=== PATIENT | female | born 1950 | race Caucasian/White ===

== ENCOUNTER 2019-11-30 08:04 | Outpatient (CLI) | payer OTHER, SELFPAY ==
[2019-11-30 08:25] LABS: Basophils Absolute Auto 0.02 K/mm3 (0.00-0.10); Basophils Percent Auto 0.5 % (0.0-1.0); Eosinophils Absolute Auto 0.25 K/mm3 (0.02-0.50); Hematocrit 41.1 % (35.0-42.0); Hemoglobin 13.8 g/dL (11.7-13.8); Immature Granulocyte Absolute 0.02 K/mm3 (0.00-0.00); Immature Granulocyte Percent A 0.5 % (0.0-0.0); Lymphocytes Absolute Auto 0.76 K/mm3 (1.10-4.50); Lymphocytes Percent Auto 18.2 % (18.0-42.0); Mean Corpuscular HGB Conc 33.6 g/dL (32.0-36.0); Mean Corpuscular Hemoglobin 32.2 pg (27.0-31.0); Mean Corpuscular Volume 95.8 fL (78.0-102.0); Mean Platelet Volume 9.8 fl (9.2-11.8); Monocytes Absolute Auto 0.42 K/mm3 (0.10-0.90); Monocytes Percent Auto 10.1 % (2.0-11.0); Neutrophils Absolute Auto 2.7 K/mm3 (1.7-7.2); Neutrophils Percent Auto 64.7 % (50.0-70.0); Platelet Count Result 188 K/mm3 (150-420); Red Blood Count 4.29 M/mm3 (4.20-5.40); Red Cell Distribution Width 12.7 % (11.6-14.4); White Blood Count 4.2 K/mm3 (4.8-10.8)
[2019-11-30 09:25] LABS: Alanine Aminotransferase 18 U/L (14-59); Albumin Level 3.5 g/dL (3.4-5.0); Alkaline Phosphatase 67 U/L (46-116); Anion Gap 9.3 mmol/L (7-16); Aspartate Amino Transferase 16 U/L (15-37); Bilirubin,Total 0.3 mg/dL (0.00-1.00); Blood Urea Nitrogen 13 mg/dL (7-18); Calcium 8.7 mg/dL (8.5-10.1); Carbon Dioxide 31 mmol/L (21-32); Chloride 106 mmol/L (98-108); Cholesterol 180 mg/dL (0-200); Estimated Glomerular Filt Rate > 60; Glucose 87 mg/dL (70-99); HDL Direct 57 mg/dL (40-60); LDL Cholesterol Calculated 98 mg/dL (<130); Osmolality Calculated 293 mOsm/kg (285-295); Potassium 4.3 mmol/L (3.5-5.1); Sodium 142 mmol/L (136-145); Total Protein 6.6 g/dL (6.4-8.2); Triglycerides 124 mg/dL (0-150)
== END 2019-11-30 08:05 | disposition home or self-care (01) ==
PROVIDERS: PCP Nurse Practitioner Family; Visit Provider Nurse Practitioner Family
DX: E78.5 Hyperlipidemia, unspecified (principal); I10 Essential (primary) hypertension
CPT/HCPCS: 36415; 80053; 80061; 85025

== ENCOUNTER 2021-09-24 09:33 | Outpatient (CLI) | payer OTHER, SELFPAY ==
[2021-09-24 09:42] LABS: Basophils Absolute Auto 0.02 K/mm3 (0.00-0.10); Basophils Percent Auto 0.4 % (0.0-1.0); Eosinophils Absolute Auto 0.14 K/mm3 (0.02-0.50); Eosinophils Percent Auto 2.7 % (1.0-6.0); Hematocrit 45.6 % (35.0-42.0); Hemoglobin 15.1 g/dL (11.7-13.8); Immature Granulocyte Absolute 0.02 K/mm3 (0.00-0.00); Immature Granulocyte Percent A 0.4 % (0.0-0.0); Lymphocytes Absolute Auto 1.12 K/mm3 (1.10-4.50); Lymphocytes Percent Auto 21.5 % (18.0-42.0); Mean Corpuscular HGB Conc 33.1 g/dL (32.0-36.0); Mean Corpuscular Hemoglobin 32.2 pg (27.0-31.0); Mean Corpuscular Volume 97.2 fL (78.0-102.0); Mean Platelet Volume 10.1 fl (9.2-11.8); Monocytes Absolute Auto 0.45 K/mm3 (0.10-0.90); Monocytes Percent Auto 8.6 % (2.0-11.0); Neutrophils Absolute Auto 3.5 K/mm3 (1.7-7.2); Neutrophils Percent Auto 66.4 % (50.0-70.0); Platelet Count Result 178 K/mm3 (150-420); Red Blood Count 4.69 M/mm3 (4.20-5.40); Red Cell Distribution Width 13.1 % (11.6-14.4); White Blood Count 5.2 K/mm3 (4.8-10.8)
[2021-09-24 11:00] LABS: Alanine Aminotransferase 23 U/L (14-59); Alkaline Phosphatase 105 U/L (46-116); Anion Gap 8 mmol/L (8-16); Aspartate Amino Transferase 15 U/L (15-37); Bilirubin,Total 0.5 mg/dL (0.00-1.00); Blood Urea Nitrogen 10 mg/dL (7-18); Carbon Dioxide 30 mmol/L (21-32); Chloride 104 mmol/L (98-108); Cholesterol 158 mg/dL (0-200); Estimated Glomerular Filt Rate > 60; Glucose 93 mg/dL (70-99); HDL Direct 52 mg/dL (40-60); LDL Cholesterol Calculated 85 mg/dL (<130); Osmolality Calculated 293 mOsm/kg (285-295); Potassium 4.1 mmol/L (3.5-5.1); Sodium 142 mmol/L (136-145); Total Protein 6.9 g/dL (6.4-8.2); Triglycerides 106 mg/dL (0-150)
== END 2021-09-24 09:34 | disposition home or self-care (01) ==
LOC: CHSLAB 09:35
PROVIDERS: PCP Nurse Practitioner Family; Visit Provider Nurse Practitioner Family
DX: E78.5 Hyperlipidemia, unspecified (principal); I10 Essential (primary) hypertension
CPT/HCPCS: 36415; 80053; 80061; 85025

== ENCOUNTER 2022-12-11 10:30 | Emergency (ER) | payer OTHER, SELFPAY ==
[2022-12-11] VITALS (34 sets, daily range): BP systolic 112–147; BP diastolic 43–73; PULSE 59–75; RESP 12–24; TEMP 36.6; O2SAT 88–100
--- NOTE | ~2022-12-11 | CT_ITS ---
EXAMINATION: CT abdomen pelvis w con DATE: 12/11/2022 11:52 INDICATION: Epigastric pain radiating to back. History of endometrial cancer. TECHNIQUE: Computed tomography (CT) of the abdomen and pelvis was performed with 100 CC Omnipaque 350 intravenous contrast. Automated exposure control and iterative reconstruction technique were employe d. Exam dose: 1063.83 mGy-cm total exam DLP. COMPARISON: None. FINDINGS: The lung bases are clear. Normal heart size. No pericardial or pleural effusion. Small sliding hiatal hernia. The gallbladder is contracted with thickening of the wall and pericholecystic fluid or fat stranding suggesting acute cholecystitis. There is mild intrahepatic bile duct dilatation. No pancreatic mass lesion or pancreatic calcificatio n or pancreatic duct dilatation is noted. Normal splenic size. Normal morphology of the adrenal glands. No renal mass lesion is evident. There is a small nonobstructing lower pole right renal calculus. No ureteral calculus or hydroureteronephrosis is noted on either side. Normal appendix. Diverticulosis of the colon; no CT evidence of diverticulitis. No bowel obstruction, bowel wall thickening, pneumatosis or intraperitoneal free air. Status post hysterectomy. There is mild atherosclerotic calcification but normal caliber of the abdominal aorta. There is ather osclerotic calcification at the origins of the celiac and superior mesenteric arteries and to a great er extent the renal arteries. No intraperitoneal or retroperitoneal or pelvic mass lesion or adenopathy or ascites is noted. Degenerative changes of the thoracic spine including diffuse idiopathic skeletal hyperostosis. Multil evel degenerative disc disease of the lumbar spine, especially at L1-2 and L2-3. No suspicious osteolytic or osteoblastic lesions are noted. IMPRESSION: Acute cholecystitis is suggested Mild intrahepatic bile duct dilatation Small sliding hiatal hernia Normal appendix Diverticulosis of the colon; no CT evidence of diverticulitis Small nonobstructing lower pole right renal calculus Status post hysterectomy Reviewed, dictated and finalized at [facility]. Reviewed, dictated and finalized at location [facility].
--- NOTE | ~2022-12-11 | XR_ITS ---
XR abdomen NG/feed tube insert INDICATION: Evaluate NG tube position. TECHNIQUE: Limited KUB perform for evaluating NG tube . COMPARISON: No prior studies for comparison. FINDINGS: NG tube tip in the stomach. Visualized bowel gas pattern is unremarkable. IMPRESSION: 1: NG tube tip in the stomach. Reviewed, dictated and finalized at location [facility].
--- NOTE | ~2022-12-11 | XR_ITS ---
XR chest 1V portable DATE: 12/11/2022 11:53 INDICATION: Epigastric pain for 10 days. Former smoker. TECHNIQUE: Portable AP chest on 12/11/2022 at 1137 hours COMPARISON: 12/11/2022 CT abdomen pelvis FINDINGS: Heart size is within normal range. Is aortic arch calcification. Mild hiatal hernia. No pulmonary infiltrate or consolidation, pleural effusion or pulmonary vascular congestion or pneumo thorax. IMPRESSION: No active cardiopulmonary disease Aortic atherosclerosis Small hiatal hernia Reviewed, dictated and finalized at location [facility].
--- NOTE | 2022-12-11 10:51 | ECG_ITS ---
Measurements Intervals [place] Rate: 66 P: 13 OH: 188 QRS: 20 QRSD: 105 T: 43 QT: 428 QTc: 449 Interpretive Statements SINUS RHYTHM INCOMPLETE RIGHT BUNDLE BRANCH BLOCK [90+ ms QRS DURATION, TERMINAL R IN V1/V2, 40+ ms S IN I/aVL/V4/V5/V6] BORDERLINE ECG NO PREVIOUS ECG AVAILABLE FOR COMPARISON Electronically Signed On 12-11-2022 13:23:54 CDT by Ki Yusuf M.D.
--- NOTE | 2022-12-11 10:54 | ED.GENADULT ---
HPI - General Adult General Chief complaint: Abdominal Pain Stated complaint: abdominal pain x 1 week Time Seen by Provider: 12/11/22 10:39 History of Present Illness HPI narrative: This is a 72-year-old female presenting ED with a chief complaint abdominal pain. Patient pain is located in the epigastric area and radiates to her back. He has been going on for 1 week, this worsens to food is described as a burning sensation. Six out 10 intensity and used to come and go but is now constant. Patient has never had pain like this before the last 2 weeks. She is not taking anything for pain control. She has never been diagnosed with gastritis or peptic ulcer disease before. She has had decreased oral intake. She denies fever chills nausea vomiting diarrhea, chest pain difficulty breathing or urinary symptoms. Related Data Allergies Allergy/AdvReac Type Severity Reaction Status Date / Time No Known Allergies Allergy Verified 12/11/22 13:06 [facility] Past Medical History Medical History (Updated 12/11/22 @ 12:41 by Ricardo Willis MD) FIGO stage II endometrial cancer HTN (hypertension) Hyperlipidemia Overweight Social History Social History Smoking status: Former smoker Alcohol intake: never Exam Narrative: APPEARANCE: Patient appears uncomfortable Head: atraumatic. EYES: EOMI, NOSE: Atraumatic NECK: Trachea midline RESPIRATORY: No increased rate of breathing , clear to auscultation CARDIOVASCULAR: RRR, ABDOMINAL: tenderness to palpation in the epigastric area, rest the abdomen soft nontender no guarding or rebound. MUSCULOSKELETAl: No obvious deformities NEURO: Alert. Moving 4/4 extremities SKIN:: Warm, dry. Normal color PSYCHIATRIC: Normal affect Course Vital Signs Vital signs: Vital Signs Temperature 97.9 F 12/11/22 10:30 Pulse Rate 71 12/11/22 10:30 Respiratory Rate 18 12/11/22 10:30 Blood Pressure 147/73 H 12/11/22 10:30 Pulse Oximetry 96 12/11/22 10:30 Oxygen Delivery Room Air 12/11/22 10:30 Temperature 97.9 F 12/11/22 14:15 Pulse Rate 59 L 12/11/22 14:16 Respiratory Rate 16 12/11/22 14:16 Blood Pressure 115/60 12/11/22 14:16 Pulse Oximetry 95 12/11/22 14:16 Oxygen Delivery Room Air 12/11/22 10:30 Medical Decision Making MDM Narrative Medical decision making narrative: -Presentation: 72-year-old female presenting with severe abdominal pain. 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 Hemoglobin 15 3. Metabolic panel unremarkable. Lactic 0.7 Urine showed ketones, blood and trace esterase. Patient has no urinary symptoms. Independent EKG interpretation: Rhythm [sinus], Rate [66], [place] -[normal], [place] -[normal], QRS [narrow], QTC [normal], T waves -[negative for concerning inversions], ST Segments - [Negative for concerning elevations] Final interpretations: [Normal Sinus Rhythm] Chest x-ray had no acute findings. CT Abdomen Pelvis: Suspected gastric antral or proximal duodenal perforated ulcer versus inflammation of cystic duct remnant NG tube will be placed to low intermittent suction. Patient was started on antibiotics. Patient given another 2 L of fluid resuscitation. Dx tests considered but not ordered:None -Procedures: NG-tube insertion -Interventions: 0.5 mg Dilaudid, 20 mg Pepcid, 4 mg Zofran, 30 mg Maalox, Pip/tazo, 3 L normal saline -Shared decision ma
[2022-12-11 11:06] LABS: Basophils Absolute Auto 0.03 K/mm3 (0.00-0.10); Basophils Percent Auto 0.3 % (0.0-1.0); Bilirubin Urine 1+ (Negative); Blood Urine 3+ (Negative); Color Urine Yellow (Yellow); Eosinophils Absolute Auto 0.03 K/mm3 (0.02-0.50); Eosinophils Percent Auto 0.3 % (1.0-6.0); Glucose Urine UA Negative (Negative); Hematocrit 45.6 % (35.0-42.0); Hemoglobin 15.3 g/dL (11.7-13.8); Immature Granulocyte Absolute 0.06 K/mm3 (0.00-0.00); Immature Granulocyte Percent A 0.5 % (0.0-0.0); Ketones Urine 1+ (Negative); Leukocyte Esterase Ur Trace LEU/UL (Negative); Lymphocytes Absolute Auto 2.36 K/mm3 (1.10-4.50); Lymphocytes Percent Auto 20.6 % (18.0-42.0); Mean Corpuscular HGB Conc 33.6 g/dL (32.0-36.0); Mean Corpuscular Hemoglobin 31.1 pg (27.0-31.0); Mean Corpuscular Volume 92.7 fL (78.0-102.0); Mean Platelet Volume 9.7 fl (9.2-11.8); Monocytes Absolute Auto 0.93 K/mm3 (0.10-0.90); Monocytes Percent Auto 8.1 % (2.0-11.0); Neutrophils Absolute Auto 8.1 K/mm3 (1.7-7.2); Neutrophils Percent Auto 70.2 % (50.0-70.0); Nitrate Urine Negative (Negative); Platelet Count Result 295 K/mm3 (150-420); Protein Urine Trace (Negative); Red Blood Count 4.92 M/mm3 (4.20-5.40); Red Cell Distribution Width 12.3 % (11.6-14.4); Specific Grav Ur >= 1.030 (1.010-1.020); White Blood Count 11.5 K/mm3 (4.8-10.8)
[2022-12-11] MEDS: SODIUM CHLORIDE 0.9% IV 1,000 ML 999 ML IV CONT (11:06)
[2022-12-11] MEDS: ONDANSETRON INJ 4 MG/2 ML VIAL IV PUSH (11:06)
[2022-12-11] MEDS: HYDROmorphone HCL INJ (*CRX) 2 MG/ML VIAL 0.5 MG IV PUSH (11:07)
[2022-12-11] MEDS: FAMOTIDINE 20 MG/2 ML VIAL IV PUSH (11:09)
[2022-12-11] MEDS: MAG HYDROX/AL HYDROX/SIMETH 30 ML UDC PO (11:09)
[2022-12-11 11:12] LABS: Add Urine Microscopic? YES; Appearance Urine Slightly Cloudy (Clear); Squamous Epithelial Cell Urine Few /hpf (Few); WBC Urine 0-3 /hpf (0-3)
[2022-12-11 11:13] LABS: Bacteria Urine 1+ /hpf
[2022-12-11 11:17] LABS: Partial Thromboplastin Time 23.5 SEC (23.90-30.70); Prothrombin Time 10.9 Seconds (9.50-12.10)
[2022-12-11 11:19] LABS: Alanine Aminotransferase 26 U/L (14-59); Albumin Level 3.6 g/dL (3.4-5.0); Alkaline Phosphatase 114 U/L (46-116); Anion Gap 8 mmol/L (8-16); Aspartate Amino Transferase 58 U/L (15-37); Bilirubin,Total 0.8 mg/dL (0.00-1.00); Blood Urea Nitrogen 12 mg/dL (7-18); Carbon Dioxide 29 mmol/L (21-32); Chloride 102 mmol/L (98-108); Estimated CRCL calculation 53 ml/min; Estimated Glomerular Filt Rate > 60; Glucose 132 mg/dL (70-99); Lipase 26 U/L (16-77); Osmolality Calculated 289 mOsm/kg (285-295); Sodium 139 mmol/L (136-145); Total Protein 7.5 g/dL (6.4-8.2)
[2022-12-11 11:21] LABS: Troponin I 18.2 ng/L (0.00-60.4)
[2022-12-11 11:24] LABS: Lactic Acid Reflex 0.7 mmol/L (0.4-2.0)
[2022-12-11] MEDS: SODIUM CHLORIDE 0.9% IV 2,000 ML 999 ML IV CONT (12:57)
[2022-12-11] MEDS: LIDOCAINE HCL 1% LOCAL INJ 10 ML VIAL INFILTRATE (13:36)
[2022-12-11 14:14] LABS: Troponin I 18.9 ng/L (0.00-60.4)
== END 2022-12-11 14:40 | disposition short-term general hospital (02) ==
PROVIDERS: Emergency Provider Emergency Medicine; PCP Nurse Practitioner Family
DX: K25.5 Chronic or unspecified gastric ulcer with perforation (principal); I10 Essential (primary) hypertension; E78.5 Hyperlipidemia, unspecified; Z85.42 Personal history of malignant neoplasm of other parts of uterus; Z90.49 Acquired absence of other specified parts of digestive tract
CPT/HCPCS: 36415; 71045; 74177; 80053; 81001; 83605; 83690; 83735; 84484; 85025; 85610; 85730; 93005; 96361; 96365; 96375; 99285; A9270; J1170; J2405; J2543; J7030; Q9967

== ENCOUNTER 2022-12-11 17:32 | Inpatient (IN) | payer OTHER, SELFPAY ==
--- NOTE | ~2022-12-11 | XR_ITS ---
XR UGI water soluble wo kub DATE: 12/12/2022 10:32 INDICATION: Possible perforated ulcer TECHNIQUE: Single contrast examination with water-soluble contrast material COMPARISON: 12/11/2022 CT abdomen pelvis FINDINGS: Water-soluble contrast material was administered through the existing nasogastric tube. Small ulcer crater suggested along the lesser curvature of the distal gastric antrum, with surroundin g mass effect consistent with amount of edema. No extravasated contrast material is noted. No other ulcer or intraluminal mass lesion of the stomach or duodenum is detected. The duodenal bulb and duodenal C-loop appear normal. Normal mucosal pattern of the stomach and duodenum and proximal je junum. IMPRESSION: Probable distal antral lesser curvature ulcer Reviewed, dictated and finalized at [facility]. Reviewed, dictated and finalized at [facility].
--- NOTE | ~2022-12-11 | XR_ITS ---
XR abdomen/kub 1V INDICATION: Evaluate NG tube position. TECHNIQUE: Limited KUB perform for evaluating NG tube . COMPARISON: 12/11/2022 FINDINGS: NG tube tip in the stomach. Visualized bowel gas pattern is unremarkable. IMPRESSION: 1: NG tube tip in the stomach. Reviewed, dictated and finalized at location A.
[2022-12-11 15:39] VITALS: BP 127/59; PULSE 64; RESP 18; TEMP 36.5; O2SAT 99
--- NOTE | 2022-12-11 16:47 | ADMGEN ---
This patient, Nery Jasso, was admitted to [facility] Room 310-01 at 1525. Patient/family oriented to hospital policies and general routines including ID bracelet, bed and alarms, visiting hours, pain management, procedures, bathroom and other care routines, personal items, smoking policy, room service/diet, and visiting hours. Information on how to activate the Rapid Response Team has been discussed. Patient/Family are encouraged to report perceived risks to care and to ask questions if they do not understand what they are told or what they should do.
[2022-12-11 16:48] VITALS: BMI 40.3
--- NOTE | 2022-12-11 17:00 | WPDCN ---
Assessment and Plan Assessment and plan (1) Peptic ulcer: Code(s): K27.9 - Peptic ulcer, site unspecified, unspecified as acute or chronic, without hemorrhage or perforation Status: Acute (2) Abdominal pain: Code(s): R10.9 - Unspecified abdominal pain Status: Acute (3) Dehydration: Code(s): E86.0 - Dehydration Status: Acute (4) Hypertension: Code(s): I10 - Essential (primary) hypertension Status: Acute (5) Gastroesophageal reflux disease: Code(s): K21.9 - Gastro-esophageal reflux disease without esophagitis Status: Acute (6) Hyperlipidemia: Code(s): E78.5 - Hyperlipidemia, unspecified Status: Chronic Plan The patient presented to the emergency department at the outside facility today for evaluation of epigastric pain radiating through to the back. She has not been feeling well for 7 to 10 days as per HPI. Imaging today shows findings of peptic ulcer disease with possible perforation though her abdominal exam is quite benign at this time. NG tube has been inserted for decompression and she will be NPO aside from ice chips overnight. Dr. Nuno recommends starting the patient on pantoprazole and sucralfate. She has also been started on empiric Zosyn for possible underlying infection given the CT read however that seems less likely. She will eventually need an upper GI series. Analgesics and antiemetics are available if needed. She has been started on maintenance fluids as she looks dry on exam and by labs. Her vital signs have been quite stable. Monitor blood pressures closely as she is currently NPO. Thank you for allowing us to participate in this patient's care. Please do not hesitate to contact us with any questions. Time spent on patient encounter: 60 minutes. [facility] Data of Consult Date/Time: 12/11/22 16:25 Requesting Physician: Laura Nuno MD Primary Care Provider: Aviva Barron NP Consult Narrative Reason for consult: Medical management. Narrative: This is a very pleasant 72-year-old female with history of GERD, hypertension, hyperlipidemia, and uterine cancer whom the hospitalist service has been consulted for help managing her medical conditions. The patient provides the following history. She has not been feeling well for upwards of 10 days with generalized epigastric discomfort with occasional burning pain radiating into the right upper quadrant and through to the back. It is worse with food; she has not noticed any significant alleviating factors. Her appetite has not been great either. The symptoms are similar to those she experienced prior to cholecystectomy. This morning her pain was acutely worse and she was seen in the ED at the [facility]. CT of the abdomen and pelvis showed suspected gastric antral proximal duodenal perforated ulcer versus inflammation of the cystic duct remnant. Transfer was initiated to [place] for surgery consultation. Her vital signs have been stable and she has minimal discomfort at the time my evaluation. She has no previous history of peptic ulcers and interestingly she has not had any significant GERD symptoms recently. She takes an occasional Zantac if needed, last time being approximately 1 month ago. She does take Excedrin at home for pain, perhaps a couple of times a week, but she has not had any for well over a week as it seemed to irritate her stomach more. She drinks 4 cans of soda a day. No significant alcohol use. No change in stressors recently. She denies bloating, belching, and melena. Review of Systems Review of Systems: Twelve systems were reviewed and are negative except for as per HPI. [facility] Past Medical History Medical History FIGO stage II endometrial cancer (2019) Status post hysterectomy, external beam radiation, and vaginal brachytherapy. Gastroesophageal reflux disease Hyperlipidemia Hypertension
[2022-12-11 17:22] LABS: Hematocrit 42.2 % (37.0-47.0); Hemoglobin 13.8 g/dL (12.0-15.0); Mean Corpuscular HGB Conc 32.7 g/dl (32-36); Mean Corpuscular Hemoglobin 31.2 pg (26-34); Mean Corpuscular Volume 95.3 fl (80-100); Mean Platelet Volume 9.5 fl (7.4-10.4); Platelet Count Result 225 k/mm3 (150-375); Red Blood Count 4.43 M/mm3 (4.2-5.4); Red Cell Distribution Width 12.8 % (11.5-14.5)
[2022-12-11 17:33] LABS: Alanine Aminotransferase 120 U/L (6-35); Albumin Level 3.8 g/dL (3.5-5.1); Alkaline Phosphatase 114 U/L (38-126); Anion Gap 4 mmol/L (8-16); Aspartate Amino Transferase 224 U/L (14-36); Bilirubin,Total 1.7 mg/dL (0.2-1.3); Blood Urea Nitrogen 10 mg/dL (7-17); Calcium 7.5 mg/dL (8.4-10.2); Carbon Dioxide 29 mmol/L (22-30); Chloride 105 mmol/L (98-107); Estimated CRCL calculation 66 ml/min; Estimated Glomerular Filt Rate > 60; Glucose 109 mg/dL (65-110); Sodium 138 mmol/L (137-145)
--- NOTE | 2022-12-11 17:38 | PM.IMHP ---
H&P: HPI History of Present Illness Date/Time: 12/11/22 17:38 Chief Complaint: Upper abdominal pain Narrative: The patient is a 72-year-old female presenting from an outside emergency department complaining of upper abdominal pain radiating to her back. The patient reports the symptoms have been going on for the last 10 days or so however was acutely worse this morning. The patient reports that she has generally not felt well and has had poor appetite. The patient reports that the pain is constant however acutely worse with eating. The patient denies any previous similar symptoms. Upon admission today, the patient reports her symptoms have largely resolved. Review of Systems Constitutional: Constitutional: Reports as per HPI, Denies anorexia, Denies chills, Denies fatigue, Denies fever(s), Reports lethargy, Reports malaise, Reports poor appetite, Reports weakness, Denies weight gain and Denies weight loss Eyes: Eyes: Reports no additional eye complaints ENT: Reports system reviewed and no additional complaints, except as documented Cardiovascular: Cardiovascular: Reports no additional cardiovascular complaints Respiratory: Respiratory: Reports no additional respiratory complaints Gastrointestinal: Gastrointestinal: Reports as per HPI, Reports abdominal pain, Reports bloating, Reports GI cramping, Reports early satiety, Reports dyspepsia, Reports heartburn, Reports nausea and Denies vomiting Genitourinary: Genitourinary: Reports no additional female genitourinary complaints Musculoskeletal: Musculoskeletal: Reports no additional musculoskeletal complaints Integumentary/Breasts: Skin/Breast: Reports system reviewed and no additional complaints, except as docu Neurologic: Reports system reviewed and no additional complaints, except as documented Psychiatric: Psychiatric: Reports no additional psychiatric complaints Endocrine: Endocrine: Reports no additional endocrine complaints Hematologic/Lymphatic: Hematologic/Lymphatic: Reports no additional hematologic/lymphatic complaints Allergic/Immunologic: Allergic/Immunologic: Reports no additional allergic/immunologic complaints [facility] Past Medical History Medical History FIGO stage II endometrial cancer (2019) Status post hysterectomy, external beam radiation, and vaginal brachytherapy. Gastroesophageal reflux disease Hyperlipidemia Hypertension Surgical History Surgical History History of appendectomy (1986) History of cholecystectomy (1986) History of colonoscopy with polypectomy (03/2022) History of tonsillectomy (1962) History of total abdominal hysterectomy and bilateral salpingo-oophorectomy (03/2019) Family History Family History Other Heart disease Social History Social History Social History: Surrogate medical decision maker: Jef Gardnerelia, spouse. Code status: Full code. Smoking packs per day: 1.5 Smoking cigarettes per day: 30.0 Years smoked: 10 Smoking pack-years: 15.00 Smoking status: Former smoker Additional smoking assessment comments: Quit in 1983. Alcohol intake: never Lack of Transportation: No Lack of Food: Never True Current Housing: I Have Housing Concerned About Future Housing: No Difficulty Paying Gas/Electric Bills: No Difficulty Paying for Meds: No Currently Unemployed: No Education: Associate Degree Difficulty w/ Childcare or Family Care: No Additional living arrangements comments: Lives with spouse in [place]. Additional occupation/education comments: Retired. Spiritual care concerns: No Meds Home Medications and Allergies Home Medications Medication Instructions Recorded Confirmed Type atenolol 25 mg tablet See Rx Instructions .Route 06/24/22 12/11/22 Rx .COMPLEX #90 t
[2022-12-11] MEDS: LACTATED RINGERS 1,000 ML 100 ML IV CONT (17:41)
[2022-12-11] MEDS: PIPERACILLN/TAZ 3.375GM/NS50ML 3.375 GM/50 ML BAG IVPB (18:17)
[2022-12-11] MEDS: PANTOPRAZOLE SODIUM IV 40 MG VIAL IV PUSH (20:36)
[2022-12-11 22:00] VITALS: BP 131/67; PULSE 75; RESP 14; TEMP 36.4; O2SAT 97
[2022-12-12] MEDS: PIPERACILLN/TAZ 3.375GM/NS50ML 3.375 GM/50 ML BAG IVPB ×3 (00:03→14:13)
[2022-12-12 06:00] VITALS: BP 143/70; PULSE 78; RESP 20; TEMP 36; O2SAT 93
[2022-12-12] MEDS: SUCRALFATE SUSP 100 MG/ML 10 ML UDC 1000 MG PO ×2 (08:53→16:36)
[2022-12-12] MEDS: LACTATED RINGERS 1,000 ML 100 ML IV CONT (08:53)
[2022-12-12] MEDS: PANTOPRAZOLE SODIUM IV 40 MG VIAL IV PUSH (08:53)
--- NOTE | 2022-12-12 11:44 | PM.DS ---
DS: Admitting Diagnosis Discharge Date 12/12/2022 Admitting Diagnosis perforated gastric ulcer DS: Discharge Diagnosis Discharge Diagnosis (1) Perforated gastric ulcer: Code(s): K25.5 - Chronic or unspecified gastric ulcer with perforation Status: Acute Assessment and Plan: exam completely benign at this point, we will remove NG and advance diet as tolerated, if tolerating diet well discharge home with b.i.d. PPI, upper GI reviewed, discussed with Dr. Saleh who recommends interval EGD in 4-6 weeks (2) Hypertension: Code(s): I10 - Essential (primary) hypertension Status: Acute Assessment and Plan: stable, resume home meds DS: Summary Hospital Course Reason for hospitalization: perforated gastric ulcer Hospital Course: The patient is a 72-year-old female presenting from outside emergency department complaining of severe epigastric abdominal pain, nausea and vomiting. Workup, including imaging, was significant for perforated gastric ulcer. The patient was admitted to the surgical service. Upon evaluation, it was noted that the patient's exam was completely benign. A upper GI was ordered and it seemed that the ulcer had sealed at this time. The patient continued to have NG tube decompression, IV ppi, antibiotics, and Carafate. The following morning, the patient continued to have a benign exam. Her NG was removed and a diet was started. The patient was able to tolerate her diet and will be discharged to home at this time. The patient will be sent home with PPI b.i.d. as well as follow-up in 2 weeks. The patient is planned to have interval EGD in 4-6 weeks. Status at Discharge Functional status at discharge: independent ambulation Overall status at discharge: patient is progressing back to baseline Time Spent with Patient Time attestation: Total time spent providing and/or coordinating discharge services: Exam Const: General: cooperative, comfortable and no acute distress Resp: Auscultation: clear to auscultation bilaterally Cardio: Rate: regular rate Rhythm: regular rhythm GI: Inspection: normal to inspection and non-distended GI Palp: No abdominal tenderness, Yes Soft to palpation, No Tenderness to palpation present (GI), No Guarding due to palpation present (GI) and No Rigid due to palpation DS: Data Data Completed and Pending Labs on day of discharge: Labs from last 24 hours 12/11/22 12/11/22 17:05 17:04 WBC 11.0 H RBC 4.43 Hgb 13.8 Hct 42.2 MCV 95.3 MCH 31.2 MCHC 32.7 RDW 12.8 Plt Count 225 MPV 9.5 Sodium 138 Potassium 4.0 Chloride 105 Carbon Dioxide 29 Anion Gap 4 L BUN 10 Creatinine 0.70 Estim Creat Clear Calc 66 Estimated GFR > 60 Glucose 109 Calcium 7.5 L Total Bilirubin 1.7 H AST 224 H ALT 120 H Alkaline Phosphatase 114 Total Protein 7.0 Albumin 3.8 Imaging My impression: UGI - antral ulcer no leak Discharge Plan Discharge Attending physician on discharge: Laura Nuno Discharging Clinician: Laura Nuno Anticipated Discharge Date/Time: 12/12/22 16:00 Patient Disposition: Home, Self-Care Activity: may shower and as tolerated Diet: as tolerated Patient Instructions: Antibiotic Form Stand Alone Forms: General Discharge Information Follow-up/Referrals: Laura Nuno MD [Physician] - 2 Weeks Discharge Medications: New pantoprazole [Protonix] 40 mg tablet,delayed release (DR/EC) 40 mg PO BID 42 Days Qty: 84 0RF Continued oxycodone 5 mg tablet 5 mg PO Q4H PRN (Reason: pain) Qty: 14 0RF alum-mag hydroxide-simeth [Advanced Antacid-Antigas] 200-200-20 mg/5 mL suspension 10 ml PO QID PRN (Reason: dyspepsia) Qty: 355 0RF Rx Instructions: administer between meals and at bedtime pravastatin 20 mg tablet See Rx Instructions .ROUTE .COMPLEX Qty: 90 2RF Dose Instruction: TAKE 1 TABLET DAILY Rx Instructions: CONI
[2022-12-12 14:00] VITALS: BP 141/66; PULSE 69; RESP 18; TEMP 36.8; O2SAT 94
== END 2022-12-12 18:30 | disposition home or self-care (01) | DRG 382 ==
PROVIDERS: Admitting Provider Surgery; PCP Nurse Practitioner Family; Visit Provider Surgery
DX: K25.1 Acute gastric ulcer with perforation (principal); I10 Essential (primary) hypertension; E86.0 Dehydration; K21.9 Gastro-esophageal reflux disease without esophagitis; E78.5 Hyperlipidemia, unspecified; Z85.42 Personal history of malignant neoplasm of other parts of uterus; Z90.49 Acquired absence of other specified parts of digestive tract; Z90.710 Acquired absence of both cervix and uterus; Z90.722 Acquired absence of ovaries, bilateral; Z87.891 Personal history of nicotine dependence
CPT/HCPCS: 36415; 74018; 74240; 80053; 85027; A9270; C9113; J2543; J7120

== ENCOUNTER 2023-01-03 08:33 | Day surgery (SDC) | payer OTHER, SELFPAY ==
[2022-12-31 13:56] VITALS: BMI 38.9
[2022-12-31 14:27] VITALS: BMI 39.0
--- NOTE | 2023-01-03 06:44 | WPDANESEPPF ---
Anes - Initial Pre Proc Eval Procedure: Operation Date: 01/03/23 11:30 Proposed Procedures p Esophagogastroduodenoscopy - Billy Kovacs MD Date/Time: 01/03/23 06:44 Surgeon: Billy Kovacs MD Pre Op Diagnosis: Chronic Gastric Ulcer with Perforation Patient Data Age: 72 Gender: F Height: 1.52 m Weight: 90.7 kg Allergies Allergy/AdvReac Type Severity Reaction Status Date / Time No Known Allergies Allergy Verified 01/03/23 10:26 Home Medications Medication Instructions Recorded Confirmed Type atenolol 25 mg tablet See Rx Instructions .Route 06/24/22 01/03/23 Rx .COMPLEX #90 tabs pravastatin 20 mg tablet See Rx Instructions .Route 06/24/22 01/03/23 Rx .COMPLEX #90 tabs aluminum-mag hydroxide-simethicone 10 ml PO QID PRN dyspepsia #355 mL 12/11/22 01/03/23 Rx 200 mg-200 mg-20 mg/5 mL oral susp (Advanced Antacid-Antigas) pantoprazole 40 mg tablet,delayed 40 mg PO BID 6 weeks #84 tabs 12/12/22 01/03/23 Rx release (Protonix) Patient hx anesthesia problems: none Family hx anesthesia problems: none Results Review: All pre-operative results and documents have been reviewed as part of the pre-operative evaluation. [facility] Past Medical History Medical History (Updated 01/03/23 @ 10:54 by Billy Kovacs MD) FIGO stage II endometrial cancer (2018) Status post hysterectomy, external beam radiation, and vaginal brachytherapy. Gastric ulcer Gastroesophageal reflux disease Hyperlipidemia Hypertension Surgical History Surgical History History of appendectomy (1986) History of cholecystectomy (1986) History of colonoscopy with polypectomy (03/2022) History of tonsillectomy (1962) History of total abdominal hysterectomy and bilateral salpingo-oophorectomy (03/2019) Family History Family History Other Heart disease Social History Social History Social History: Surrogate medical decision maker: Ed Hoog, spouse. Code status: Full code. Smoking packs per day: 1.5 Smoking cigarettes per day: 30.0 Years smoked: 10 Smoking pack-years: 15.00 Smoking status: Never smoker Additional smoking assessment comments: Quit in 1983. Alcohol intake: never Substance use: never Substance use type: does not use Lack of Transportation: No Lack of Food: Never True Current Housing: I Have Housing Concerned About Future Housing: No Difficulty Paying Gas/Electric Bills: No Difficulty Paying for Meds: No Currently Unemployed: No Education: Associate Degree Difficulty w/ Childcare or Family Care: No Living arrangements: with family Additional living arrangements comments: Lives with spouse in [place]. Additional occupation/education comments: Retired. Spiritual care concerns: No Anes - Eval Final PreProcedure Day of Procedure 01/03/23 06:44 Patient weight: obese Heart: regular rate and rhythm Lungs: clear to auscultation Airway: Mallampati scale class II Neurological: alert and oriented Last oral intake: >/= 8 hours ASA classification: III Emergent: no Anesthetic plan: proceed Anesthesia type and monitoring: general GIVS and standard monitoring Results Review: All pre-operative results and documents have been reviewed as part of the pre-operative evaluation. Informed Consent: The patient's anesthetic plan and its attendant risks and benefits were discussed with the patient/family/POA. Questions were solicited and answers provided to the satisfaction of the patient/family/POA.
[2023-01-03 10:22] VITALS: BP 148/85; PULSE 88; RESP 20; TEMP 36.8; O2SAT 98
[2023-01-03] MEDS: LACTATED RINGERS 1,000 ML 150 ML IV CONT (10:39)
--- NOTE | 2023-01-03 10:53 | PM.HPGS ---
History of Present Illness History of Present Illness Consent: Risks, benefits, and alternatives have been discussed and questions answered. Patient agrees to proceed with procedure. Chief complaint: Chronic Gastric Ulcer with Perforation Narrative: Nery Jasso is a 72 year old female with severe epigastric pain 1 month ago, UGI series showed gastric ulcer- treated medically with protonix bid and now doing much better but never had egd. Review of Systems Constitutional: Constitutional: Denies headache(s) and Denies weakness Eyes: Eyes: Denies blurry vision ENT: Reports Normal hearing present, Denies headache(s) and Denies neck pain Cardiovascular: Cardiovascular: Denies chest pain and Denies dyspnea Respiratory: Respiratory: Denies dyspnea Gastrointestinal: Gastrointestinal: Reports no additional gastrointestinal complaints Genitourinary: Genitourinary: Denies dysuria Musculoskeletal: Musculoskeletal: Denies neck pain Integumentary/Breasts: Skin/Breast: Denies dry skin Neurologic: Reports Normal hearing present, Denies headache(s) and Denies weakness Psychiatric: Psychiatric: Denies anxiety Endocrine: Endocrine: Denies change in body appearance Hematologic/Lymphatic: Hematologic/Lymphatic: Denies easy bleeding Allergic/Immunologic: Allergic/Immunologic: Denies urticaria PMFSH Past Medical History Medical History (Updated 01/03/23 @ 10:54 by Billy Kovacs MD) FIGO stage II endometrial cancer (2018) Status post hysterectomy, external beam radiation, and vaginal brachytherapy. Gastric ulcer Gastroesophageal reflux disease Hyperlipidemia Hypertension Surgical History Surgical History History of appendectomy (1986) History of cholecystectomy (1986) History of colonoscopy with polypectomy (03/2022) History of tonsillectomy (1962) History of total abdominal hysterectomy and bilateral salpingo-oophorectomy (03/2019) Family History Family History Other Heart disease Social History Social History Social History: Surrogate medical decision maker: Jef Jasso, spouse. Code status: Full code. Smoking packs per day: 1.5 Smoking cigarettes per day: 30.0 Years smoked: 10 Smoking pack-years: 15.00 Smoking status: Never smoker Additional smoking assessment comments: Quit in 1983. Alcohol intake: never Substance use: never Substance use type: does not use Lack of Transportation: No Lack of Food: Never True Current Housing: I Have Housing Concerned About Future Housing: No Difficulty Paying Gas/Electric Bills: No Difficulty Paying for Meds: No Currently Unemployed: No Education: Associate Degree Difficulty w/ Childcare or Family Care: No Living arrangements: with family Additional living arrangements comments: Lives with spouse in [place]. Additional occupation/education comments: Retired. Spiritual care concerns: No Meds Home Medications and Allergies Home Medications Medication Instructions Recorded Confirmed Type atenolol 25 mg tablet See Rx Instructions .Route 06/24/22 01/03/23 Rx .COMPLEX #90 tabs pravastatin 20 mg tablet See Rx Instructions .Route 06/24/22 01/03/23 Rx .COMPLEX #90 tabs aluminum-mag hydroxide-simethicone 10 ml PO QID PRN dyspepsia #355 mL 12/11/22 01/03/23 Rx 200 mg-200 mg-20 mg/5 mL oral susp (Advanced Antacid-Antigas) pantoprazole 40 mg tablet,delayed 40 mg PO BID 6 weeks #84 tabs 12/12/22 01/03/23 Rx release (Protonix) Allergies Allergy/AdvReac Type Severity Reaction Status Date / Time No Known Allergies Allergy Verified 01/03/23 10:26 Vital Signs Vital Signs - 24 hr 01/03/23 10:22 Temperature 98.3 F Pulse Rate 88 Respiratory Rate 20 Blood Pressure 148/85 H Pulse Oximetry 98 Oxygen Delivery Room Air Exam Con
[2023-01-03 11:06] VITALS: BP 103/64; PULSE 74; RESP 14; O2SAT 97
--- NOTE | 2023-01-03 11:14 | WPDANESPN ---
Anes - Prog Note Post-Op Date/Time: 01/03/23 11:14 Cardiovascular status: normal Respiratory status: normal Airway patency: baseline Mental status: baseline Post-Op hydration status: normal Vital Signs: Last Vital Signs Temp 36.8 C 01/03/23 10:22 Pulse 88 01/03/23 10:22 Resp 20 01/03/23 10:22 BP 148/85 H 01/03/23 10:22 Pulse Ox 98 01/03/23 10:22 O2 Del Method Room Air 01/03/23 10:22 Pain Score (VAS): 0 Post-procedural complaints: none Patient Feedback: Patient satisfied with anesthetic care. Other Findings: Patient vital signs back to baseline. Patient denies nausea and vomiting. Patient's pain under control. Patient OK for discharge.
[2023-01-03 11:16] VITALS: BP 98/53; PULSE 73; RESP 16; O2SAT 97
[2023-01-03 11:26] VITALS: BP 112/59; PULSE 72; RESP 16; O2SAT 96
[2023-01-03 11:36] VITALS: BP 119/66; PULSE 70; RESP 16; O2SAT 96
== END 2023-01-03 11:46 | disposition home or self-care (01) ==
PROVIDERS: PCP Nurse Practitioner Family; Visit Provider Internal Medicine Gastroenterology
PROC: 0DJ08ZZ Inspection of Upper Intestinal Tract, Via Natural or Artificial Opening Endoscopic (ICD-10-PCS; CPT 43235; principal; 2023-01-03 11:30)
DX: K25.9 Gastric ulcer, unspecified as acute or chronic, without hemorrhage or perforation (principal)
CPT/HCPCS: 43239

== ENCOUNTER 2023-01-03 09:00 | Outpatient (NON) | payer OTHER, SELFPAY | END 2023-01-03 09:01 | disposition home or self-care (01) | LOC: ANHLAB 01-04 08:36 | PROVIDERS: PCP Nurse Practitioner Family; Visit Provider Internal Medicine Gastroenterology | DX: K25.5 Chronic or unspecified gastric ulcer with perforation (principal) | CPT/HCPCS: 88305 ==

== ENCOUNTER 2024-07-05 16:57 | Emergency (ER) | payer MEDICARE, OTHER, SELFPAY ==
--- NOTE | ~2024-07-05 | XR_ITS ---
HISTORY: pain after fall COMPARISON: None TECHNIQUE: 3 views of the left humerus were performed FINDINGS: Limited evaluation of the left humeral head secondary to overlying soft tissues and diffuse bony sigifredo neralization. The left humeral head lies inferior medial to the glenoid fossa, consistent with left shoulder disloc ation. No acute displaced fracture is appreciated within the glenoid fossa, scapula or clavicle. The distal humerus is unremarkable. The proximal humerus is likely fracture at the neck, for which post r eduction imaging is recommended. IMPRESSION: Anterior shoulder dislocation with a likely left humeral head fracture, as detailed bianca rodriguez. Reviewed, dictated and finalized at location A. MANAGER IMPRESSION: Anterior shoulder dislocation with a likely left humeral head frac ture, as detailed above.
[2024-07-05 16:57] VITALS: BP 127/67; PULSE 80; RESP 18; TEMP 36.7; O2SAT 99
--- NOTE | 2024-07-05 17:09 | ED.GENADULT ---
HPI - General Adult General Chief complaint: Extremity Injury, Upper Stated complaint: FALL Time Seen by Provider: 07/05/24 16:58 History of Present Illness HPI narrative: Queta is a 73F with a PMH of a gastric ulcer, HTN, and endometrial cancer that presented to the ED after she fell up the stairs and landed on her left arm. She has a lot of pain after the fall but no other injuries. Related Data Allergies Allergy/AdvReac Type Severity Reaction Status Date / Time No Known Allergies Allergy Verified 07/05/24 16:59 Review of Systems Review of Systems: All systems reviewed & are unremarkable except as noted in HPI and below PMFSH Past Medical History Medical History Gastric ulcer Hypertension Gastroesophageal reflux disease FIGO stage II endometrial cancer (2018) Status post hysterectomy, external beam radiation, and vaginal brachytherapy. Hyperlipidemia Surgical History Surgical History History of colonoscopy with polypectomy (03/2022) History of tonsillectomy (1962) History of appendectomy (1986) History of cholecystectomy (1986) History of total abdominal hysterectomy and bilateral salpingo-oophorectomy (03/2019) Family History Family History Other Heart disease Social History Social History Social History: Surrogate medical decision maker: Jef Gardnerog, spouse. Code status: Full code. Smoking packs per day: 1.5 Smoking cigarettes per day: 30.0 Years smoked: 10 Smoking pack-years: 15.00 Smoking status: Never smoker Additional smoking assessment comments: Quit in 1983. Alcohol intake: never Substance use: never Substance use type: does not use Lack of Transportation: No Lack of Food: Never True Current Housing: I Have Housing Concerned About Future Housing: No Difficulty Paying Gas/Electric Bills: No Difficulty Paying for Meds: No Currently Unemployed: No Education: Associate Degree Difficulty w/ Childcare or Family Care: No Living arrangements: with family Additional living arrangements comments: Lives with spouse in [place]. Additional occupation/education comments: Retired. Spiritual care concerns: No Exam Const: General: cooperative, healthy appearing, comfortable, no acute distress, well developed, alert, awake and Physically active Orientation/consciousness: oriented to person, oriented to place and oriented to time HENMT: Head: normal to inspection, normocephalic and atraumatic Ears: hearing grossly normal bilaterally and external ears normal Face/Nose/Sinus: Normal external nose present Eyes: General: appearance normal, both eyes and all related structures Periorbital: periorbital findings normal Sclera: sclerae normal Pupils: Equal, round and reactive pupils present Neck: Neck: normal visual inspection Chest: Chest palpation & inspection: normal inspection of the chest Resp: Effort & Inspection: normal respiratory effort, able to speak in complete sentences and no respiratory distress Cardio: Jugular venous distension: no JVD Skin: General skin exam: normal color and no rashes or lesions noted Neuro: General: oriented to person, oriented to place and oriented to time Cranial nerves: Yes Equal, round and reactive pupils present Extrem: General: normal to inspection Other: Holding left arm which was TTP Course Course Emergency Course: Ordered morphine, ondansetron and radiographs HISTORY: pain after fall COMPARISON: None TECHNIQUE: 3 views of the left humerus were performed FINDINGS: Limited evaluation of the left humeral head secondary to overlying soft tissues and diffuse bony demineralization. The left humeral head lies inferior medial to the glenoid fossa, consistent with left shoulder dislocation. No acute displaced fracture is appreciated within the glenoid fossa, scapula or clavicle. The distal humerus is unremarkable. The proximal humerus is likely fracture at the neck, for which post reduction imaging is recommended. IMPRESSION: Anterior shoulder dislocation with a likely left humeral head fracture, as detailed above. I spoke with trauma services at [facility] that accepted the transfer. She was transferred for orthopedic services Vital Signs Vital signs: Vital Signs Temperature 98.0 F 07/05/24 16:57 Pulse Rate 80 07/05/24 16:57 Respiratory Rate 18 07/05/24 16:57 Blood Pressure 127/67 07/05/24 16:57 Pulse Oximetry 99 07/05/24 16:57 Oxygen Delivery Room Air 07/05/24 16:57 Temperature 98.0 F 07/05/24 16:57 Pulse Rate 72 07/05/24 18:48 Respiratory Rate 18 07/05/24 18:48 Blood Pressure 115/57 L 07/05/24 18:48 Pulse Oximetry 98 07/05/24 18:48 Oxygen Delivery Room Air 07/05/24 18:48 Medical Decision Making Vital Signs Vital Signs: Vital Signs Temperature 98.0 F 07/05/24 16:57 Pulse Rate 80 07/05/24 16:57 Respiratory Rate 18 07/05/24 16:57 Blood Pressure 127/67 07/05/24 16:57 Pulse Oximetry 99 07/05/24 16:57 Oxygen Delivery Room Air 07/05/24 16:57 Temperature 98.0 F 07/05/24 16:57 Pulse Rate 72 07/05/24 18:48 Respiratory Rate 18 07/05/24 18:48 Blood Pressure 115/57 L 07/05/24 18:48 Pulse Oximetry 98 07/05/24 18:48 Oxygen Delivery Room Air 07/05/24 18:48 Discharge Plan Discharge Clinical Impression: Anterior dislocation of left shoulder, Fracture of proximal end of humerus Patient Disposition: Acute Care Hospital Condition: Serious Instructions: Arm Fracture in Adults (ED) Patient Language: Slovak Prescriptions: No Action alum-mag hydroxide-simeth [Advanced Antacid-Antigas] 200-200-20 mg/5 mL suspension 10 ml PO QID PRN (Reason: dyspepsia) Qty: 355 0RF Rx Instructions: administer between meals and at bedtime atenolol 25 mg tablet See Rx Instructions .ROUTE .COMPLEX Qty: 10 0RF Dose Instruction: TAKE 1 TABLET DAILY (NEED AN APPOINTMENT BEFORE ADDITIONAL REFILLS) Rx Instructions: TAKE 1 TABLET DAILY (NEED AN APPOINTMENT BEFORE ADDITIONAL REFILLS) pravastatin 20 mg tablet See Rx Instructions .ROUTE .COMPLEX Qty: 10 0RF Dose Instruction: TAKE 1 TABLET DAILY (NEEDS APPOINTMENT BEFORE ANY MORE ADDITIONAL REFILLS) Rx Instructions: TAKE 1 TABLET DAILY (NEEDS APPOINTMENT BEFORE ANY MORE ADDITIONAL REFILLS) Follow-up/Referrals: Aviva Barron NP [Primary Care Provider] -
[2024-07-05] MEDS: ONDANSETRON HCL ODT 4 MG TABLET PO (17:11)
[2024-07-05] MEDS: MORPHINE SULFATE (*CRX) 4 MG/ML INJ IV PUSH (17:11)
--- NOTE | 2024-07-05 18:08 | PC.NURSE ---
PT IS AWAITING ERP DECISION AT THIS TIME. AT BEDSIDE. WILL CONTINUE TO MONITOR. ANOTHER PILLOW HAS BEEN PROVIDED TO HELP ELEVATE LEFT ARM. [facility] NOTIFIED AT THIS TIME FOR POSSIBILITY OF TRANSFER
--- NOTE | 2024-07-05 18:29 | PC.NURSE ---
PT IS REQUESTING MORE PAIN MEDICATION AT THIS TIME. ERP IS AWARE.
[2024-07-05] MEDS: MORPHINE SULFATE (*CRX) 4 MG/ML INJ 2 MG IV PUSH (18:36)
[2024-07-05 18:48] VITALS: BP 115/57; PULSE 72; RESP 18; O2SAT 98
--- NOTE | 2024-07-05 18:54 | PC.NURSE ---
+PMS POST SLING APPLICATION
--- NOTE | 2024-07-05 18:54 | PC.NURSE ---
[facility] SENT WITH PT
== END 2024-07-05 19:30 | disposition short-term general hospital (02) ==
PROVIDERS: Emergency Provider Family Medicine; PCP Nurse Practitioner Family
DX: S42.292A Other displaced fracture of upper end of left humerus, initial encounter for closed fracture (principal); W10.9XXA Fall (on) (from) unspecified stairs and steps, initial encounter; I10 Essential (primary) hypertension; E78.5 Hyperlipidemia, unspecified; Z87.11 Personal history of peptic ulcer disease; Z85.42 Personal history of malignant neoplasm of other parts of uterus; Z92.3 Personal history of irradiation; Z90.710 Acquired absence of both cervix and uterus; Z87.891 Personal history of nicotine dependence
CPT/HCPCS: 73060; 96374; 96376; 99285; A4565; A9270; J2270

== ENCOUNTER 2024-08-23 13:31 | Outpatient (RCR) | payer MEDICARE, SELFPAY ==
--- NOTE | 2024-08-23 14:36 | OPREHPOC ---
Outpatient Therapy Plan of Care This is a Multidisciplinary Plan of Care that may contain components documented by all disciplines (PT, OT, and ST.) PT Problem 1 PT Problem #1 Knowledge Deficit PT Goal 1 Goal / Goal Update 1. independent and compliant with HEP Target Visit 6 PT Problem 2 PT Problem #2 Pain PT Goal 1 Goal / Goal Update 1. decrease pain at worst to 2/10 or less with all activity and exercise Target Visit 12 PT Problem 3 PT Problem #3 Impaired Range of Motion PT Goal 1 Goal / Goal Update 1. passive L shoulder flexion to 145 degrees or better 2. passive L shoulder abduction to 130 degrees or better 3. passive L shoulder ER to 80 degrees or better 4. passive L elbow ext to 0 degrees Target Visit 6 PT Goal 2 Goal / Goal Update 1. active L shoulder flex to 135 degrees or better 2. active L shoulder abd to 120 degrees or better 3. active L elbow ext to 0 degrees 4. active L wrist flex and ext to 70 degrees each Target Visit 12 PT Problem 4 PT Problem #4 Impaired Strength PT Goal 1 Goal / Goal Update 1. 4/5 or better L shoulder strength 2. 4+/5 or better L elbow strength 3. 4+/5 or better L wrist and forearm strength Target Visit 12 PT Problem 5 PT Problem #5 Impaired Functional Mobility PT Goal 1 Goal / Goal Update 1. quick dash to display 30% or less functional deficits 2. patient to lift 2lbs to overhead shelf with the L UE 3. patient to reach behind head to the shirt collar with L UE 4. patient to reach behind back to the lumbar spine with the L UE Target Visit 12
--- NOTE | 2024-08-23 14:36 | PTOPEVAL1 ---
Assessment and note entered by JT File, PT Evaluation Information Assessment Status Evaluation Diagnosis L proximal humerus fracture ICD-10 Condition Codes (PT) Pain in left shoulder M25.512 Onset 07/05/24 Subjective Information patient reports she fell and broke her L humerus on the steps at home. she reports she has been in a sling until just a few weeks ago. she reports she did not have surgery on the L arm. she is on a 5lb WB/lifting restriction on the L UE. orders indicated focus at this time should be on a/prom and elbow as tolerated. she reports before the fall, no issues with the L UE. Reported Pain Level Pain Score 0: Self Report Assessment PT Clinical Summary mrs. ortega is a 73 yo woman who presents to skilled PT services for evaluation and treatment following fall and L humerus fracture. 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 she would benefit from continued skilled PT to address her objective/functional deficits and return to prior level functional activity performance/ quality of life. Plan of Care Interventions Electrical Stimulation,Hot Pack/Cold Pack,Manual Therapy,Neuro Re-education,Patient/Caregiver Education,Therapeutic Activities,Therapeutic Exercise PT Services Indicated Yes Treatment Frequency and 3x weekly for 12 visits Duration These treatments will address the objective and functional deficits as defined above. The patient will be advanced safely and appropriately in order for the patient to progress towards his/her prior level of function. Additional exercises will be introduced and as well as a comprehensive home exercise program upon discharge, if needed, ?to ensure carryover of functional gains achieved in the clinic. This treatment plan has been reviewed and agreement upon by the patient.
--- NOTE | 2024-09-14 10:20 | OPREHPOC ---
Outpatient Therapy Plan of Care This is a Multidisciplinary Plan of Care that may contain components documented by all disciplines (PT, OT, and ST.) PT Problem 1 PT Problem #1 Knowledge Deficit PT Goal 1 Goal / Goal Update 1. independent and compliant with HEP Target Visit 6 Progress Met PT Problem 2 PT Problem #2 Pain PT Goal 1 Goal / Goal Update 1. decrease pain at worst to 2/10 or less with all activity and exercise Target Visit 12 Progress Not Met PT Problem 3 PT Problem #3 Impaired Range of Motion PT Goal 1 Goal / Goal Update 1. passive L shoulder flexion to 145 degrees or better 2. passive L shoulder abduction to 130 degrees or better 3. passive L shoulder ER to 80 degrees or better 4. passive L elbow ext to 0 degrees Target Visit 6 Progress Not Met PT Goal 2 Goal / Goal Update 1. active L shoulder flex to 135 degrees or better 2. active L shoulder abd to 120 degrees or better 3. active L elbow ext to 0 degrees 4. active L wrist flex and ext to 70 degrees each Target Visit 12 Progress Not Met PT Problem 4 PT Problem #4 Impaired Strength PT Goal 1 Goal / Goal Update 1. 4/5 or better L shoulder strength -not met 2. 4+/5 or better L elbow strength -not met 3. 4+/5 or better L wrist and forearm strength - met Target Visit 12 Progress Partially Met PT Problem 5 PT Problem #5 Impaired Functional Mobility PT Goal 1 Goal / Goal Update 1. quick dash to display 30% or less functional deficits 2. patient to lift 2lbs to overhead shelf with the L UE 3. patient to reach behind head to the shirt collar with L UE 4. patient to reach behind back to the lumbar spine with the L UE Target Visit 12 Progress Not Met
--- NOTE | 2024-09-14 10:20 | PTOPPROG ---
Assessment and note entered by Vianca Corrigan, PT Evaluation Information Assessment Status Progress Diagnosis L proximal humerus fracture ICD-10 Condition Codes (PT) Pain in left shoulder M25.512 Onset 07/05/24 Subjective Information Queta denies pain upon entering the clinic and notes that pain only occurs intermittently with certain movements. At this time she only feels some stiffness but states it goes away with therapy. She's also been taking her ibuprofen less frequently and is still trying to wean off of it. 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 She still struggles with lifting the arm high enough to brush her hair and put it up in a pony tail. She states she goes back to the doctor at the beginning of September to get another x- ray to see if her arm has healed any more. She's been independent with her HEP Assessment PT Clinical Summary Mrs. Jasso has attended 10 total skilled physical therapy sessions following a L proximal humerus fracture in November 2023. She has made mild improvements in her AROM and strength of the shoulder, elbow, and wrist and is able to perform light functional activities at home. Her pain is negligible at rest but does increase to around 3/ 10 with activity and she still experiences difficulty with ADLs such as grooming and reaching behind her back. She will benefit from continued skilled PT intervention to further progress in her ROM, strength, and functional use of the arm. Plan of Care Interventions Electrical Stimulation,Hot Pack/Cold Pack,Manual Therapy,Neuro Re-education,Patient/Caregiver Education,Therapeutic Activities,Therapeutic Exercise,Self-Care/Home Management PT Services Indicated Yes Treatment Frequency and Continue per original POC Duration These treatments will address the objective and functional deficits as defined above. The patient will be advanced safely and appropriately in order for the patient to progress towards his/her prior level of function. Additional exercises will be introduced and as well as a comprehensive home exercise program upon discharge, if needed, ?to ensure carryover of functional gains achieved in the clinic. This treatment plan has been reviewed and agreement upon by the patient.
--- NOTE | 2024-09-20 09:32 | OPREHPOC ---
Outpatient Therapy Plan of Care This is a Multidisciplinary Plan of Care that may contain components documented by all disciplines (PT, OT, and ST.) PT Problem 1 PT Problem #1 Knowledge Deficit PT Goal 1 Goal / Goal Update 1. independent and compliant with HEP Target Visit 6 Progress Met PT Problem 2 PT Problem #2 Pain PT Goal 1 Goal / Goal Update 1. decrease pain at worst to 2/10 or less with all activity and exercise Target Visit 12 Progress Not Met PT Problem 3 PT Problem #3 Impaired Range of Motion PT Goal 1 Goal / Goal Update 1. passive L shoulder flexion to 145 degrees or better 2. passive L shoulder abduction to 130 degrees or better 3. passive L shoulder ER to 80 degrees or better 4. passive L elbow ext to 0 degrees Target Visit 24 Progress Not Met PT Goal 2 Goal / Goal Update 1. active L shoulder flex to 135 degrees or better 2. active L shoulder abd to 120 degrees or better 3. active L elbow ext to 0 degrees 4. active L wrist flex and ext to 70 degrees each Target Visit 24 Progress Not Met PT Problem 4 PT Problem #4 Impaired Strength PT Goal 1 Goal / Goal Update 1. 4/5 or better L shoulder strength -not met 2. 4+/5 or better L elbow strength -not met 3. 4+/5 or better L wrist and forearm strength - met Target Visit 24 Progress Partially Met PT Problem 5 PT Problem #5 Impaired Functional Mobility PT Goal 1 Goal / Goal Update 1. quick dash to display 30% or less functional deficits 2. patient to lift 2lbs to overhead shelf with the L UE 3. patient to reach behind head to the shirt collar with L UE 4. patient to reach behind back to the lumbar spine with the L UE Target Visit 24 Progress Not Met
--- NOTE | 2024-09-20 09:32 | PTOPREEVAL ---
Assessment and note entered by JT File, PT Evaluation Information Assessment Status Re-evaluation Diagnosis L proximal humerus fracture ICD-10 Condition Codes (PT) Pain in left shoulder M25.512 Onset 07/05/24 Subjective Information patient reports she feels Good today. she reports she has no pain in the L shoulder. patient reports she follows up with MD next week. she reports she feels improved, but still unable to reach overhead and behind head and back. Reported Pain Level Pain Score 0: Self Report Assessment PT Clinical Summary mrs. ortega presents to skilled PT for her 12th skilled therapy visit. she presents with improved, but still limited shoulder active rom and strength of the L UE. she presents with progress made towards goals, but still lacking in goals and functional use of the L UE. she would benefit from continued skilled PT to continue to work on improvement of her objective/functional deficits to return to her prior level functional activity performance/quality of life. Plan of Care Interventions Electrical Stimulation,Hot Pack/Cold Pack,Manual Therapy,Neuro Re-education,Patient/Caregiver Education,Therapeutic Activities,Therapeutic Exercise,Self-Care/Home Management PT Services Indicated Yes Treatment Frequency and continue skilled PT 3x weekly for 12 visits Duration These treatments will address the objective and functional deficits as defined above. The patient will be advanced safely and appropriately in order for the patient to progress towards his/her prior level of function. Additional exercises will be introduced and as well as a comprehensive home exercise program upon discharge, if needed, ?to ensure carryover of functional gains achieved in the clinic. This treatment plan has been reviewed and agreement upon by the patient.
--- NOTE | 2024-10-19 09:12 | OPREHPOC ---
Outpatient Therapy Plan of Care This is a Multidisciplinary Plan of Care that may contain components documented by all disciplines (PT, OT, and ST.) PT Problem 1 PT Problem #1 Knowledge Deficit PT Goal 1 Goal / Goal Update 1. independent and compliant with HEP Target Visit 6 Progress Met PT Problem 2 PT Problem #2 Pain PT Goal 1 Goal / Goal Update 1. decrease pain at worst to 2/10 or less with all activity and exercise Target Visit 12 Progress Met PT Problem 3 PT Problem #3 Impaired Range of Motion PT Goal 1 Goal / Goal Update 1. passive L shoulder flexion to 145 degrees or better 2. passive L shoulder abduction to 130 degrees or better. met 3. passive L shoulder ER to 80 degrees or better 4. passive L elbow ext to 0 degrees. met Target Visit 24 Progress Partially Met PT Goal 2 Goal / Goal Update 1. active L shoulder flex to 135 degrees or better 2. active L shoulder abd to 120 degrees or better 3. active L elbow ext to 0 degrees. met 4. active L wrist flex and ext to 70 degrees each. partially met Target Visit 24 Progress Partially Met PT Problem 4 PT Problem #4 Impaired Strength PT Goal 1 Goal / Goal Update 1. 4/5 or better L shoulder strength -met 2. 4+/5 or better L elbow strength -met 3. 4+/5 or better L wrist and forearm strength - met Target Visit 24 Progress Met PT Problem 5 PT Problem #5 Impaired Functional Mobility PT Goal 1 Goal / Goal Update 1. quick dash to display 30% or less functional deficits. met 2. patient to lift 2lbs to overhead shelf with the L UE. met 3. patient to reach behind head to the shirt collar with L UE. not met 4. patient to reach behind back to the lumbar spine with the L UE. not met Target Visit 24 Progress Partially Met
--- NOTE | 2024-10-19 09:13 | PTOPDC ---
Assessment and note entered by JT File, PT Evaluation Information Assessment Status Discharge Diagnosis L proximal humerus fracture ICD-10 Condition Codes (PT) Pain in left shoulder M25.512 Onset 07/05/24 Subjective Information patient reports she is feeling great lately. she reports she would love to be done with PT today. she reports she is compliant with her HEP. Reported Pain Level Pain Score 0: Self Report Assessment PT Clinical Summary mrs. ortega presents to skilled PT services today for her 24th skilled PT visit. she displays improved active and passive rom of the L shoulder, elbow, and wrist. she also displays improved strength and functional lifting with the L UE. she has met or partially met all goals for skilled PT as of this date. she is ready to DC therapy today , and continue with HEP independent at home. Plan of Care PT Services Indicated Yes
== END 2024-10-19 10:46 | disposition home or self-care (01) ==
LOC: CHSPT 13:31
DX: S42.202A Unspecified fracture of upper end of left humerus, initial encounter for closed fracture (principal)
CPT/HCPCS: 97014; 97110; 97112; 97150; 97161; 97530; G0283

== ENCOUNTER 2024-10-24 14:59 | Outpatient (CLI) | payer MEDICARE, SELFPAY ==
[2024-10-24 15:14] LABS: Basophils Absolute Auto 0.03 K/mm3 (0.00-0.10); Basophils Percent Auto 0.4 % (0.0-1.0); Eosinophils Absolute Auto 0.13 K/mm3 (0.02-0.50); Eosinophils Percent Auto 1.6 % (1.0-6.0); Hematocrit 43.8 % (35.0-42.0); Hemoglobin 14.4 g/dL (11.7-13.8); Immature Granulocyte Absolute 0.03 K/mm3 (0.00-0.00); Immature Granulocyte Percent A 0.4 % (0.0-0.0); Lymphocytes Absolute Auto 1.69 K/mm3 (1.10-4.50); Lymphocytes Percent Auto 21.4 % (18.0-42.0); Mean Corpuscular HGB Conc 32.9 g/dL (32-36); Mean Corpuscular Hemoglobin 31.3 pg (27.0-31.0); Mean Corpuscular Volume 95.2 fL (78.0-102.0); Mean Platelet Volume 10.4 fl (9.2-11.8); Monocytes Absolute Auto 0.63 K/mm3 (0.10-0.90); Neutrophils Absolute Auto 5.39 K/mm3 (1.70-7.20); Neutrophils Percent Auto 68.2 % (50.0-70.0); Platelet Count Result 217 K/mm3 (150-420); Red Cell Distribution Width 13.1 % (11.6-14.4); White Blood Count 7.9 K/mm3 (4.8-10.8)
[2024-10-25 08:39] LABS: Vitamin D 25 Hydroxy 36 ng/mL (30-100)
[2024-10-26 08:05] LABS: Alanine Aminotransferase 21 U/L (14-59); Alkaline Phosphatase 101 U/L (46-116); Anion Gap 10 mmol/L (4-12); Aspartate Amino Transferase 19 U/L (15-37); Bilirubin,Total 0.4 mg/dL (0.00-1.00); Blood Urea Nitrogen 16 mg/dL (7-18); Carbon Dioxide 27 mmol/L (21-32); Chloride 103 mmol/L (98-108); Cholesterol 172 mg/dL (0-200); Estimated Glomerular Filt Rate 58; Glucose 100 mg/dL (70-99); HDL Direct 52 mg/dL (40-60); LDL Cholesterol Calculated 93 mg/dL (<130); Osmolality Calculated 291 mOsm/kg (285-295); Potassium 4.9 mmol/L (3.5-5.1); Sodium 140 mmol/L (136-145); Total Protein 7.3 g/dL (6.4-8.2); Triglycerides 133 mg/dL (0-150)
== END 2024-10-24 15:00 | disposition home or self-care (01) ==
PROVIDERS: PCP Nurse Practitioner Family; Visit Provider Nurse Practitioner Family
DX: I10 Essential (primary) hypertension (principal); E78.5 Hyperlipidemia, unspecified; Z79.899 Other long term (current) drug therapy
CPT/HCPCS: 36415; 80053; 80061; 82306; 83735; 85025